=== PATIENT | male | born 1935 | race Caucasian/White ===

== ENCOUNTER 2021-07-01 11:32 | Inpatient (IN) | payer OTHER ==
[~2021-07-01] VITALS: Ht 177.8 cm; Wt 69.1 kg
--- NOTE | ~2021-07-01 | EMS ---
[address] [address] EMS Patient Care Report Name: MARIANA TOBIAS Room #: 216-P ADM IN M.R.#: [id number] Admission: 07/01/21 Attend Phys: Shawn Cohn MD Discharge: Date of : 37 Report #: [id number] THIS REPORT FOR: //name// Report Transmitted: 07/02/2021 10:08 EMS Care Summary [facility] Incident [id number] @ 07/01/2021 10:17 Incident Location [address] [place], [place] [address] Patient MARIANA TOBIAS Male, 85 Years 1935 Patient Address [address] [place], [place] [address] Patient History Diabetes,Pacemaker/AICD,Atrial Fibrillation,Hypotension, Patient Allergies Codeine, Patient Medications Humalog, Alendronate, Metoprolol, Lantus, Finasteride, ASA, Tamsulosin, Oxybutynin, Eliquis, Chief Complaint Chest Pain Disposition Transported No Lights/[place] Dispatch Reason Chest Pain (Non-Traumatic) Transported To [facility] Narrative Responded to call reference 85 year old male with chief complaint of sub-sternal chest pain, diffuse across anterior chest. Pt stated pain was worse upon inspiration, and had been off on and on for 3 days. Pt exhibited [address] [address] EMS Patient Care Report Name: MARIANA TOBIAS Room #: 216-[facility] IN M.R.#: [id number] Admission: 07/01/21 Attend Phys: Shawn Cohn MD Discharge: Date of : 37 Report #: [id number] positive Vicky's sign when asked to point to pain. Positive cardiac Hx, and implanted pacemaker. Pt rated pain 7/10, and pain was non-radiating. PT spouse administered Nitro X 2 prior to EMS arrival. Assessment was non-remarkable. 12-Lead showed sinus rhythm with LVH, and possible S-T abnormality indicative of ischemia. Pt placed on stretcher and transported. Initial SAO2 was 90% on RA. Blood Glucose @ 234. Administered )2 via NC @ 4 LPM. Administered IV Saline Lock with 20 Ga @ LAC. Pt was on Eliquis and daily ASA. Pt transported without incident or complaint, and Pt care transferred to ER staff upon arrival. Assessment, Stretcher, Pulse Oximetry, Lace Sewer, 3-Lead, 12-Lead, IV Saline Lock, BG, O2 via NC, Transport, Report. FARNAZ Gomez CCEMTP Initial Vitals @10:46SpO2: 97, @11:01P: 95,SpO2: 100, @10:53P: 71,BP: 134/53,SpO2: 99, @10:56P: 98,SpO2: 99, @11:13P: 88,BP: 129/65,SpO2: 98, @10:51P: 70,SpO2: 99, @10:38 @11:26 @10:41P: 73,SpO2: 96, @10:38 @11:17P: 95,SpO2: 99, @10:44P: 79,SpO2: 96, @11:07P: 86,SpO2: 98, @11:23P: 92,BP: 141/62,SpO2: 98, @10:40P: 71,BP: 116/42,SpO2: 96, @11:27P: 81, @11:03P: 86,R: 20,BP: 131/62,Pain: 8/10,GCS: 15,Glucose: 232,SpO2: 90,Revised Trauma: 12,AL Suspected: true Impression Chest pain on breathing Procedures @10:50 IV Therapy - Saline Lock 10cc (20 ga) Site: Antecubital-Left Response: UnchangedSucceeded @10:40 Oxygen FlowRate: 4 Device: Nasal Cannula (NC) Response: [facility] [address] [place] [address] EMS Patient Care Report Name: TOBIASMARIANA Room #: 216-P [facility] IN ..#: [id number] Admission: 07/01/21 Attend Phys: Shawn Cohn MD Discharge: Date of : 37 Report #: [id number] UnchangedSucceeded @10:45 ALS Assessment Response: UnchangedSucceeded @10:38 12-Lead ECG Response: UnchangedSucceeded @10:35 3-Lead ECG Response: UnchangedSucceeded @11:12 Stretcher Response: Unchanged @10:38 12-Lead ECG @11:26 12-Lead ECG @10:38 12-Lead ECG Timeline 10:17,Call Received 10:17,Dispatched 10:17,En Route 10:17,Psap Call 10:33,On Scene 10:34,At Patient 10:35,3-Lead ECG,Response: UnchangedSucceeded, 10:38,12-Lead ECG,Response: UnchangedSucceeded, 10:38,12-Lead ECG, 10:38,BP: / M,PULSE: ,RR: R,SPO2: Ox,ETCO2: ,BG: ,PAIN: ,GCS: , 10:38,12-Lead ECG, 10:38,BP: / M,PULSE: ,RR: R,SPO2: Ox,ETCO2: ,BG: ,PAIN: ,GCS: , 10:40,Oxygen FlowRate: 4 Device: Nasal Cannula (NC) Response: UnchangedSucceeded, 10:40,BP: 116/42 M,PULSE: 71,RR: R,SPO2: 96 Ox,ETCO2: ,BG: ,PAIN: ,GCS: , 10:41,BP: / M,PULSE: 73,RR: R,SPO2: 96 Ox,ETCO2: ,BG: ,PAIN: ,GCS: , 10:44,BP: / M,PULSE: 79,RR: R,SPO2: 96 Ox,ETCO2: ,BG: ,PAIN: ,GCS: , 10:45,ALS Assessment,Response: UnchangedSucceeded, 10:46,BP: / M,PULSE: ,RR: R,SPO2: 97 Ox,ETCO2: ,BG: ,PAIN: ,GCS: , 10:50,IV Therapy - Saline Lock 10cc 20 ga Site: Antecubital-Left,Response: UnchangedSucceeded, 10:51,BP: / M,PULSE: 70,RR: R,SPO2: 99 Ox,ETCO2: ,BG: ,PAIN: ,GCS: , 10:53,BP: 134/53 M,PULSE: 71,RR: R,SPO2: 99 Ox,ETCO2: ,BG: ,PAIN: ,GCS: , 10:55,Depart Scene 10:56,BP: / M,PULSE: 98,RR: R,SPO2: 99 Ox,ETCO2: ,BG: ,PAIN: ,GCS: , 11:01,BP: / M,PULSE: 95,RR: R,SPO2: 100 Ox,ETCO2: ,BG: ,PAIN: ,GCS: , 11:03,BP: 131/62 M,PULSE: 86,RR: 20 R,SPO2: 90 Ox,ETCO2: ,B,PAIN: 8,GCS: 15, 11:07,BP: / M,PULSE: 86,RR: R,SPO2: 98 Ox,ETCO2: ,BG: ,PAIN: ,GCS: , 11:12,Stretcher,Response: Unchanged 11:13,BP: 129/65 M,PULSE: 88,RR: R,SPO2: 98 Ox,ETCO2: ,BG: ,PAIN: ,GCS: , 11:17,BP: / M,PULSE: 95,RR: R,SPO2: 99 Ox,ETCO2: ,BG: ,PAIN: ,GCS: , 11:23,BP: 141/62 M,PULSE: 92,RR: R,SPO2: 98 Ox,ETCO2: ,BG: ,PAIN: ,GCS: , 11:26,12-Lead ECG, 11:26,BP: / M,PULSE: ,RR: R,SPO2: Ox,ETCO2: ,BG: ,PAIN: ,GCS: , [facility] [address] [place] [address] EMS Patient Care Report Name: MARIANA TOBIAS SANDHYA Room #: 216-P [facility] IN M.R.#: [id number] Admission: 07/01/21 Attend Phys: Shawn Cohn MD Discharge: Date of : 37 Report #: [id number] 11:27,At Destination 11:27,BP: / M,PULSE: 81,RR: R,SPO2: Ox,ETCO2: ,BG: ,PAIN: ,GCS: , 11:28,Transfer Patient 11:46,Call Closed Disclaimer v1.1 Copyright 2021 [employer] This EMS Care Summary contains data elements from the applicable legal record (which may be displayed differently). It is designed to provide pertinent information for the following purposes: continuity of care, clinical quality, and state data reporting. The complete legal record is available to ED staff and administrators of the receiving hospital in [employer]'s Patient Tracker. All data is provided "as is."
[2021-07-01 11:34] VITALS: BP 139/46
[2021-07-01 11:52] LABS: ABSOLUTE NEUTROPHILS 2.5 thou/uL (1.4-8.2); EOSINOPHILS 1.5 % (0.0-3.0); MCH 21.5 pg (26.0-34.0); MCV 70.9 fL (80.0-100.0)
[2021-07-01 11:55] LABS: BASOPHILS 0.8 % (0.0-2.0); LYMPHOCYTES 9.6 % (24.0-44.0); MCHC 30.4 g/dL (28.0-37.0); MONOCYTES 5.7 % (1.0-8.0); PLATELET COUNT 104 thou/uL (150-400); POLYS 82.4 % (36.0-66.0); RBC 2.12 mil/uL (4.50-6.00); RDW 16.8 % (10.5-14.5)
[2021-07-01 11:58] LABS: HEMOGLOBIN 4.6 gm/dL (14.0-18.0)
[2021-07-01 12:00] LABS: CALCIUM 8.8 mg/dL (8.5-10.1); CREATININE 1.2 mg/dL (0.7-1.3)
[2021-07-01 12:32] LABS: ANISOCYTOSIS 2+
[2021-07-01 12:33] LABS: HYPOCHROMASIA 2+; MICROCYTES 1+; POIKILOCYTOSIS 2+
[2021-07-01 14:00] LABS: DIRECT BILIRUBIN 0.2 mg/dL (<0.1-0.2); TOTAL BILIRUBIN 0.4 mg/dL (0.2-1.0); TOTAL PROTEIN 5.7 g/dL (6.4-8.2)
[2021-07-01 14:30] VITALS: BP 120/48; BP 124/47; BP 129/50; BP 131/56
[2021-07-01 17:47] VITALS: BP 135/45; BP 137/68; BP 145/46; BP 162/51
[2021-07-01] MEDS ORDERED: HUMALOG100 UNIT/1 SUBQ (18:01)
[2021-07-01] MEDS ORDERED: LIPITOR40 MG PO (18:02)
[2021-07-01] MEDS ORDERED: LANTUS SUBQ (18:02)
[2021-07-01] MEDS ORDERED: METOPROLOL TART25 MG PO (18:03)
[2021-07-01] MEDS ORDERED: ELIQUIS5 MG PO (18:03)
[2021-07-01] MEDS ORDERED: IMDUR 30 MG TAB30 M1 PO (18:03)
[2021-07-01] MEDS ORDERED: FLOMAX0.4 MG PO (18:04)
[2021-07-01] MEDS ORDERED: OXYTROL FOR WO1 EACH PO (18:04)
[2021-07-01] MEDS ORDERED: PROSCAR 5MG TABL5 M1 PO (18:04)
[2021-07-01] MEDS ORDERED: FOSAMAX 70 MG T70 MG PO (18:05)
[2021-07-01 18:56] LABS: URINE BILIRUBIN NEGATIVE (Negative); URINE BLOOD NEGATIVE (Negative); URINE CLARITY CLEAR; URINE COLOR YELLOW; URINE GLUCOSE-RANDOM* 1+ (Negative); URINE KETONES 1+ (Negative); URINE LEUKOCYTES-REFLEX NEGATIVE (Negative); URINE NITRITE-REFLEX NEGATIVE (Negative); URINE PROTEIN (DIPSTICK) NEGATIVE (Negative); URINE SPECIFIC GRAVITY 1.025 (1.005-1.035); URINE UROBILINOGEN 0.2 E.U./dl (0.2-1.0)
[2021-07-01 19:24] VITALS: BP 117/42
[2021-07-01 20:10] VITALS: BP 171/74
[2021-07-02] VITALS (7 sets, daily range): BP systolic 109–145; BP diastolic 46–62
[2021-07-02 01:20] LABS: ABSOLUTE NEUTROPHILS 3.8 thou/uL (1.4-8.2); BASOPHILS 0.9 % (0.0-2.0); EOSINOPHILS 1.8 % (0.0-3.0); LYMPHOCYTES 9.8 % (24.0-44.0); MCH 23.5 pg (26.0-34.0); MCHC 31.6 g/dL (28.0-37.0); MCV 74.5 fL (80.0-100.0); MONOCYTES 6.7 % (1.0-8.0); PLATELET COUNT 126 thou/uL (150-400); POLYS 80.8 % (36.0-66.0); RBC 3.22 mil/uL (4.50-6.00); RDW 18.7 % (10.5-14.5); WBC 4.7 thou/uL (4.0-11.0)
[2021-07-02 01:21] LABS: HEMOGLOBIN 7.6 gm/dL (14.0-18.0)
[2021-07-02 01:23] LABS: CALCIUM 8.5 mg/dL (8.5-10.1); CREATININE 1.2 mg/dL (0.7-1.3); MAGNESIUM 1.9 mg/dL (1.8-2.4); POTASSIUM 4.3 mmol/L (3.5-5.1)
--- NOTE | 2021-07-02 07:16 | EKG ---
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 : 1935 Requested By: Mary Rodriguez Order Number: [id number] MD: Omid Mcallister Measurements Intervals [place] Rate: 73 P: [place]: 282 QRS: 46 QRSD: 128 T: -24 QT: 382 QTc: 421 Interpretive Statements Atrial-paced rhythm Nonspecific intraventricular conduction delay Repol abnrm suggests ischemia, diffuse leads Compared to ECG 07/11/1998 21:04:00 Intraventricular conduction delay now present Early repolarization now present Possible ischemia now present Sinus bradycardia no longer present Left-axis deviation no longer present Left ventricular hypertrophy no longer present Electronically Signed On 07-02-2021 7:16:27 RECOVERY AGENT by Omid Mcallister [email or web address] <ELECTRONICALLY SIGNED> By: Omid Mcallister MD, FACC 07/02/21 0716 1135 1135 Omid Mcallister MD, FAC /EPI
--- NOTE | 2021-07-02 15:06 | 2DMMODE ---
[facility] [place] [address] [place] [address] 2 D/M-MODE ECHOCARDIOGRAM Name: MARIANA TOBIAS Room #: 216-P ADM IN M.R.#: [id number] Admission: 07/01/21 Attend Phys: Shawn Cohn MD Discharge: Date of : 37 Report #: [id number] THIS REPORT FOR: cc: Sam Cleveland MD,Omid Moser MD, MD [facility] ~ APPROVED REPORT Study performed: 07/02/2021 13:28:07 EXAM: Comprehensive 2D, Doppler, and color-flow Echocardiogram Patient Location: Preop Room #: 10 Status: routine BSA: 1.84 HR: 65 bpm BP: 129/49 mmHg Rhythm: Pacemaker Other Information Study Quality: Good Indications Atrial Fibrillation Pacemaker Elevated Troponin Chest Pain Hypertension/HDD 2D Dimensions RVDd: 35.82 mm IVSd: 10.23 (7-11mm) LVOT Diam: 21.24 (18-24mm) LVDd: 47.93 mm PWd: 9.63 (7-11mm) Ascending Ao: 34.75 (22-36mm) LVDs: 35.51 (25-40mm) Left Atrium: 41.39 (27-40mm) Aortic Root: 34.22 mm Volumes Left Atrial Volume (Systole) Single Plane 4CH: 55.64 mL Single Plane 2CH: 49.26 mL LA ESV Index: 36.00 mL/m2 Aortic Valve [facility] [address] [place] [address] 2 D/M-MODE ECHOCARDIOGRAM Name: MARIANA TOBIAS Room #: 216-P [facility] IN .R.#: [id number] Admission: 07/01/21 Attend Phys: Shawn Cohn MD Discharge: Date of : 37 Report #: [id number] AoV Peak Felipe.: 1.88 m/s AO Peak Gr.: 14.13 mmHg LVOT Max P.96 mmHg LVOT Max V: 1.22 m/s MASSIMO Vmax: 2.30 cm2 Mitral Valve E/A Ratio: 1.1 MV Decel. Time: 191.19 ms MV E Max Felipe.: 1.11 m/s MV A Felipe.: 1.04 m/s MV PHT: 55.44 ms IVRT: 124.57 ms Pulmonary Valve PV Peak Felipe.: 0.92 m/s PV Peak Gr.: 3.37 mmHg Pulmonary Vein P Vein S: 0.67 m/s P Vein A: 0.27 m/s P Vein D: 0.41 m/s P Vein A Dur.: 73.8 msec P Vein S/D Ratio: 1.63 Tricuspid Valve TR Peak Felipe.: 2.56 m/s TR Peak Gr.: 26.30 mmHg PA Pressure: 26.00 mmHg Left Ventricle The left ventricle is normal size. There is normal LV segmental wall motion. There is normal left ventricular wall thickness. The left ventricular systolic function is normal. The left ventricular ejection fraction is within the normal range. LVEF is 55-60%. Grade II - pseudonormal filling dynamics. Right Ventricle The right ventricle is normal size. The right ventricular systolic function is normal. Pacemaker lead is present in the right ventricle. Atria Left atrium is dilated. Right atrium is dilated. Pacemaker lead is present in the right atrium. Aortic Valve The aortic valve is normal in structure. The Aortic valve is sclerotic. No aortic regurgitation is present. There is no aortic valvular stenosis. [facility] [address] [place] [address] 2 D/M-MODE ECHOCARDIOGRAM Name: MARIANA TOBIAS Room #: 216-P [facility] IN .R.#: [id number] Admission: 07/01/21 Attend Phys: Shawn Cohn MD Discharge: Date of : 37 Report #: [id number] Mitral Valve The mitral valve is normal in structure. Moderate mitral regurgitation. No evidence of mitral valve stenosis. Tricuspid Valve The tricuspid valve is normal in structure. There is trace tricuspid regurgitation. Estimated PAP 26 mmHg plus the right atrial pressure. There is no pulmonary hypertension. Pulmonic Valve The pulmonary valve is normal in structure. There is no pulmonic valvular regurgitation. Great Vessels The aortic root is normal in size. The inferior vena cava is not well visualized. Pericardium There is no pericardial effusion. <Conclusion> Normal left ventricle size/wall thickness Ejection fraction 55% Grade 2 diastolic function Normal right ventricle size/function Pacemaker noted in the right atrium/ventricle Moderate biatrial enlargement Normal aortic valve structure and function Mild mitral valve insufficiency Trace tricuspid valve insufficiency Pulmonary systolic pressure estimated 26 mmHg No pericardial effusion Normal aortic root size. <ELECTRONICALLY SIGNED> By: Omid Mcallister MD, FACC 07/02/21 1506 1506 1506 Omid Mcallister MD, FACC /INF
[2021-07-03 04:45] VITALS: BP 131/52
[2021-07-03 05:18] LABS: HEMATOCRIT 24.2 % (42.0-52.0); HEMOGLOBIN 7.9 gm/dL (14.0-18.0); MCH 23.9 pg (26.0-34.0); MCHC 32.5 g/dL (28.0-37.0); MCV 73.6 fL (80.0-100.0); RBC 3.29 mil/uL (4.50-6.00); RDW 17.8 % (10.5-14.5); WBC 4.2 thou/uL (4.0-11.0)
[2021-07-03 05:27] LABS: CALCIUM 7.8 mg/dL (8.5-10.1); CREATININE 1.1 mg/dL (0.7-1.3); POTASSIUM 4.4 mmol/L (3.5-5.1)
[2021-07-03 10:39] VITALS: BP 126/62
--- NOTE | 2021-07-03 11:34 | P ---
[facility] [address] [place] [address] PROCEDURE REPORT Name: MARIANA TOBIAS Room #: 216-P ADM IN M.R.#: [id number] Admission: 07/01/21 Attend Phys: Shawn Cohn MD Discharge: Date of : 37 Report #: [id number] THIS REPORT FOR: cc: Sam Cleveland MD, Howard MD McElhinney, Christian C. MD ~ cc: Flo Dewitt MD, Macario Pineda MD DATE OF SERVICE: 07/02/2021 PROCEDURE PERFORMED: Upper endoscopy with biopsies and bleeding control. HISTORY OF PRESENT ILLNESS: The patient is an 85-year-old male who was admitted yesterday through the Emergency Room with shortness of breath and chest pain was noted to be severely anemic with a hemoglobin of 4.7. He denies any obvious bright red blood per rectum. No previous history of GI bleed. He had been on aspirin as well as Eliquis. He has a history of coronary artery disease, cardiac catheterization at [facility] 2 months ago, reportedly showing multivessel disease. Cardiology is following at this time. He has a history of AFib and a pacemaker. He received 2 units of packed cells last night. His hemoglobin today is 7.6. He is feeling better. Denies any chest pain or shortness of breath currently. Plan is for upper endoscopy. DESCRIPTION OF PROCEDURE: The risks and benefits of the procedure were explained to the patient, those risks including but not limited to bleeding, perforation and the risk of sedation. He understood these risks and gave informed consent. Sedation was given using propofol per anesthesia. Next, using a standard Olympus upper endoscope, the scope was placed in the patient's mouth and advanced under direct vision through the esophagus, stomach and into the second portion of the duodenum. The larynx was normal in appearance. The upper and mid esophagus was normal. Just below the GE junction and the high cardia, there was a 4 mm gastric nodule. There was bright red blood on the nodule. There was not significant amount of bleeding, but there was some old blood within the gastric fundus as well. I proceeded to remove the gastric nodule with a biopsy forceps. It did cause some bleeding after removal. This was treated with bipolar cautery and epinephrine injection. No further bleeding was noted at that point. In the stomach, mostly in the fundus and upper body was [id number] gastritis. Biopsies were obtained to rule out H. pylori. The gastric antrum was normal. The pylorus was normal and patent. The duodenal bulb and first portion were normal. In the second portion of the duodenum, a tiny 3 mm nonbleeding AVM was noted. This was also cauterized with 7-Fijian bipolar cautery. No evidence of bleeding after cauterization. At this point, the scope was then withdrawn and the procedure terminated. The patient tolerated the procedure well. IMPRESSION: [facility] [address] [place] [address] PROCEDURE REPORT Name: MARIANA TOBIAS Room #: 216-P [facility] IN M.R.#: [id number] Admission: 07/01/21 Attend Phys: Shawn Cohn MD Discharge: Date of : 37 Report #: [id number] 1. High cardia gastric nodule with active mild bleeding, status post removed today with a biopsy forceps then treated with cautery and epinephrine. No further bleeding at this time. 2. Gastritis. 3. 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 RECOMMENDATIONS: 1. Observe the patient post-procedure. 2. Continue PPI therapy. 3. Continue to hold anticoagulation therapy at this time. Thank you for allowing me to participate in his care. <ELECTRONICALLY SIGNED> By: Fermin Miranda MD 07/03/21 1134 1512 2148 Fermin Miranda MD /nt
[2021-07-03 13:12] VITALS: BP 120/88; BP 89/44
[2021-07-03 16:27] VITALS: BP 107/51
[2021-07-03 20:19] VITALS: BP 162/46
[2021-07-04 03:41] VITALS: BP 130/60
[2021-07-04 05:59] LABS: HEMOGLOBIN 7.5 gm/dL (14.0-18.0); MCH 23.7 pg (26.0-34.0); MCHC 31.4 g/dL (28.0-37.0); MCV 75.5 fL (80.0-100.0); RBC 3.18 mil/uL (4.50-6.00); RDW 18.8 % (10.5-14.5)
[2021-07-04 06:20] LABS: CALCIUM 8.3 mg/dL (8.5-10.1); CREATININE 0.9 mg/dL (0.7-1.3); MAGNESIUM 1.9 mg/dL (1.8-2.4); POTASSIUM 3.6 mmol/L (3.5-5.1)
[2021-07-04 08:09] VITALS: BP 12/44
[2021-07-04 08:53] LABS: % SATURATION 6 % (20-39); IRON 21 ug/dL (65-175); TIBC 335 ug/dL (250-450)
[2021-07-04 10:26] LABS: FOLIC ACID 38.5 ng/mL (8.6-58.9)
[2021-07-04 12:55] VITALS: BP 140/60
--- NOTE | 2021-07-04 14:23 | EKG ---
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 : 1935 Requested By: Macario Pineda Order Number: [id number] MD: Juan Michaels Measurements Intervals [place] Rate: 64 P: CT: 246 QRS: -51 QRSD: 116 T: -8 QT: 447 QTc: 462 Interpretive Statements Atrial-paced rhythm Incomplete left bundle branch block Probable left ventricular hypertrophy Anterior Q waves, possibly due to LVH Compared to ECG 07/01/2021 11:35:39 Left bundle-branch block now present Left ventricular hypertrophy now present Q waves now present Intraventricular conduction delay no longer present Early repolarization no longer present Possible ischemia no longer present Electronically Signed On 07-04-2021 14:23:31 IRON MOLDER HELPER by Juan Michaels [email or web address] <ELECTRONICALLY SIGNED> By: Juan Michaels MD 07/04/21 1423 1305 1305 Juan Michaels MD /EPI
[2021-07-04 15:38] VITALS: BP 137/64
[2021-07-04 19:11] VITALS: BP 117/42
[2021-07-04 20:30] VITALS: BP 113/44; BP 145/62
[2021-07-05 03:21] VITALS: BP 118/58
[2021-07-05 03:32] LABS: HEMATOCRIT 28.5 % (42.0-52.0); HEMOGLOBIN 9.2 gm/dL (14.0-18.0); MCH 24.5 pg (26.0-34.0); MCHC 32.2 g/dL (28.0-37.0); MCV 76.1 fL (80.0-100.0); RBC 3.75 mil/uL (4.50-6.00); WBC 4.5 thou/uL (4.0-11.0)
[2021-07-05 03:48] LABS: CALCIUM 8.6 mg/dL (8.5-10.1); CREATININE 1.1 mg/dL (0.7-1.3); POTASSIUM 4.1 mmol/L (3.5-5.1)
[2021-07-05 07:22] VITALS: BP 131/53
[2021-07-05] MEDS ORDERED: PROTONIX40 M2 PO (09:56)
[2021-07-05] MEDS ORDERED: ELIQUIS5 MG PO (11:08)
[2021-07-05 11:14] VITALS: BP 132/54
[2021-07-05 11:19] VITALS: BP 132/54
--- NOTE | 2021-07-06 10:58 | P ---
[facility] [place] [address] PROCEDURE REPORT Name: MARIANA TOBIAS Room #: 216-P [facility] IN M.R.#: [id number] Admission: 07/01/21 Attend Phys: Shawn Cohn MD Discharge: 07/05/21 Date of : 37 Report #: [id number] THIS REPORT FOR: cc: Sam Cleveland MD,Fermin Weir MD, MD ~ cc: Macario Pineda MD, Flo Dewitt MD DATE OF SERVICE: 07/04/2021 PROCEDURE PERFORMED: Colonoscopy with polypectomy. HISTORY OF PRESENT ILLNESS: The patient is an 85-year-old male who was admitted on 07/01/2021 for shortness of breath and chest pain. He was noted to have dark stools recently with admit hemoglobin of 4.6. He underwent a transfusion of 3 units of packed cells. Hemoglobin has been stable in the 7 range today was 7.5. I performed an upper endoscopy on the patient on 07/02/2021, which showed a high cardia gastric nodule with mild oozing. This was removed with cold forceps and treated with cautery and epinephrine. No further bleeding was noted. Gastritis was noted. Biopsies were obtained. Last colonoscopy greater than 10 years ago. Plan is for colonoscopy at this time. Anticoagulation therapy has been held. DESCRIPTION OF PROCEDURE: The risks and benefits of the procedure were explained to the patient and his family, those risks including but not limited to bleeding, perforation and the risk of sedation. They understood these risks and gave informed consent. Sedation was given using propofol per anesthesia. Next, a digital rectal exam was initially performed, which was normal. Next, using a standard Olympus colonoscope, the scope was placed in the patient's anus and advanced under direct vision to the cecum. The overall prep was poor in several areas, which did limit visualization. Multiple washings and aspirations were performed. The cecum and ileocecal valve were normal in appearance. The areas that were visualized in the ascending colon were normal, but again there was poor prep in these areas. In the transverse colon, a 5 mm sessile polyp was noted. This was removed by snare cautery. Descending and sigmoid colon normal other than areas of poor prep again not well visualized. The rectal mucosa was normal. On retroflexion, small nonbleeding internal hemorrhoids were noted. No evidence of bleeding was noted throughout the exam today. The scope was then withdrawn and the procedure terminated. The patient tolerated the procedure well. IMPRESSION: 1. Transverse colon polyp. 2. Poor prep in areas which limited visualization as described above. 3. Small nonbleeding internal hemorrhoids. [facility] [address] [place] [address] PROCEDURE REPORT Name: MARIANA TOBIAS SANDHYA Room #: 216-P [facility] IN M.R.#: [id number] Admission: 07/01/21 Attend Phys: Shawn Cohn MD Discharge: 07/05/21 Date of : 37 Report #: [id number] RECOMMENDATIONS: 1. Await biopsy results. 2. Continue PPI therapy and monitoring hemoglobin. 3. Okay to discharge the patient home today if okay with Cardiology, we will plan on repeating hemoglobin and monitoring as an outpatient in the near future. Thank you for allowing me to participate in his care. <ELECTRONICALLY SIGNED> By: Fermin Miranda MD 07/06/21 1058 1235 2156 Fermin Miranda MD /nt
--- NOTE | 2021-07-08 11:08 | PATH ---
[facility] [place] [address] [place] [address] PATHOLOGY RPT PROCEDURE Name: DIAZ TOBIAS SANDHYA Room #: 216-P DIS IN M.R.#: [id number] Admission: 07/01/21 Date of : 39 Discharge: 07/05/21 Report #: [id number] Path Case #: [id number] [facility] Accession Number: [id number] . 01 Material submitted: . colon - TRANSVERSE COLON POLYP. Modifiers: transverse . 01 Clinical history: . ANEMIA INTERNAL HEMORRHOIDS . 02 Diagnosis: Colon biopsy, transverse colon polyp: - Tubular adenoma. LBQ 07/07/2021 1228 Local . 02 Comment: There is no high grade dysplasia or evidence of malignancy. (JPM/db; 07/07/2021) . 02 Electronically signed: . Vic Jin MD, Pathologist NPI- [id number] . 01 Gross description: . Received in formalin labeled "Diaz Tobias transverse colon polyp" is a fragment of cesar-brown soft tissue measuring 0.6 x 0.5 x 0.3 cm. The specimen is submitted entirely in A1. ([facility]; 07/05/2021) . . . . GZA/GZA 07/05/2021 1516 Local . 02 Pathologist provided ICD-10: D12.3 . 02 CPT . 355332 Specimen Comment: A courtesy copy of this report has been sent to [phone] Specimen Comment: [phone] Specimen Comment: Report sent to / DR MOE Specimen Comment: A duplicate report has been generated due to demographic updates. Performed at: [address] [address] PATHOLOGY RPT PROCEDURE Name: DIAZ TOBIAS MONTEREY Room #: 216-P [facility] IN M.R.#: [id number] Admission: 07/01/21 Date of : 37 Discharge: 07/05/21 Report #: [id number] Path Case #: [id number] [address] [id number] MD Tacos De La Rosa MD Phone: [phone] Performed at: 02 [facility] [address] [place], [place] [id number] MD Vic Jin MD Phone: [phone]
--- NOTE | 2021-07-09 14:07 | PATH ---
[facility] [address] [place] [address] PATHOLOGY RPT PROCEDURE Name: MARIANA TOBIAS SANDHYA Room #: 216-P DIS IN M.R.#: [id number] Admission: 07/01/21 Date of : 39 Discharge: 07/05/21 Report #: [id number] Path Case #: [id number] [facility] Accession Number: [id number] . 01 Material submitted: . PART A: gastrointestinal site - HIGH CARDIA NODULE PART B: gastrointestinal site - GASTRITIS R/O H. PYLORI . 01 Clinical history: . EGD ANEMIA/POSITIVE STOOL CULTURE GASTRITIS, DUODENUM AUM, HIGH CARDIA NODULE . 02 Diagnosis: A. Stomach "high cardia nodule", biopsy: - Gastric adenoma with focal intestinal metaplasia; negative for high grade dysplasia and malignancy. . B. Stomach "gastritis", biopsy: - Gastric antral mucosa with features of chronic active gastritis, reactive epithelial change, and intestinal metaplasia. - Negative for dysplasia and malignancy. - Negative for Helicobacter pylori. (MARY/db; 07/08/2021) LBQ 07/08/2021 1745 Local . 02 Comment: The case is seen in co-review with consensus, by Dr. Romel Bryant on 07/08/21. . 02 Electronically signed: . Sandee España MD, Pathologist NPI- [id number] . 01 Gross description: . A. The specimen is received in formalin, labeled "Mariana Tobias, high cardiac nodule". Received are 2, cesar-pink, soft tissue fragments, both measuring 0.3 cm, in greatest dimension. The specimen is entirely submitted in cassette A1. . B. The specimen is received in formalin, labeled "Mariana Huntleyman, gastritis r/o H. pylori". Received is a single, cesar-lara, soft tissue fragment, measuring 0.3 cm, in greatest dimension. The specimen is entirely submitted in cassette B1. (JGG; 07/03/2021) [facility]/J 07/03/2021 1405 Local . 02 [place] [address] PATHOLOGY RPT PROCEDURE Name: TOBIASMARIANA CHILLICOTHE Room #: 216-P DIS IN M.R.#: [id number] Admission: 07/01/21 Date of : 39 Discharge: 07/05/21 Report #: [id number] Path Case #: [id number] Microscopic: . Immunohistochemical stain results (properly controlled) Helicobacter pylori (B1) - Negative for organisms . 02 Pathologist provided ICD-10: D13.1, K31.A0 . 02 CPT . 267239, 790621, L85635 Specimen Comment: A courtesy copy of this report has been sent to [phone] Specimen Comment: [phone], Specimen Comment: Report sent to , DR MOE / DR TREVIÑO Specimen Comment: A duplicate report has been generated due to demographic updates. Performed at: 01 [facility] [address] [id number] MD Tacos De La Rosa MD Phone: [phone] Performed at: [address] [id number] MD Romel Bryant MD Phone: [phone]
== END 2021-07-05 14:38 | disposition home or self-care (01) | DRG 378 ==
LOC: ER 11:32 → EROBS 13:44 → 2N 13:44
PROVIDERS: Internal Medicine; Nurse Practitioner; Student in an Organized Health Care Education/Training Program; ADMIT Hospitalist; ATTEND Hospitalist
PROC: 30233N1 Transfusion of Nonautologous Red Blood Cells into Peripheral Vein, Percutaneous Approach (ICD-10-PCS; principal; 2021-07-01)
PROC: 0W3P8ZZ Control Bleeding in Gastrointestinal Tract, Via Natural or Artificial Opening Endoscopic (ICD-10-PCS; 2021-07-04)
PROC: 0DBL8ZX Excision of Transverse Colon, Via Natural or Artificial Opening Endoscopic, Diagnostic (ICD-10-PCS; 2021-07-04)
PROC: 0DB68ZX Excision of Stomach, Via Natural or Artificial Opening Endoscopic, Diagnostic (ICD-10-PCS; 2021-07-04)
DX: K31.811 Angiodysplasia of stomach and duodenum with bleeding (principal); D62 Acute posthemorrhagic anemia; K29.71 Gastritis, unspecified, with bleeding; K57.31 Diverticulosis of large intestine without perforation or abscess with bleeding; I48.91 Unspecified atrial fibrillation; Z88.8 Allergy status to other drugs, medicaments and biological substances; Z20.822 Contact with and (suspected) exposure to COVID-19; I10 Essential (primary) hypertension; E78.5 Hyperlipidemia, unspecified; Z79.899 Other long term (current) drug therapy; E11.65 Type 2 diabetes mellitus with hyperglycemia; Z79.4 Long term (current) use of insulin; I25.10 Atherosclerotic heart disease of native coronary artery without angina pectoris; Z95.0 Presence of cardiac pacemaker; N40.0 Benign prostatic hyperplasia without lower urinary tract symptoms; K59.00 Constipation, unspecified; K64.8 Other hemorrhoids
CPT/HCPCS: 10081; 62110; 62900; 70005